=== PATIENT | male | born 1985 | race Caucasian/White ===

== ENCOUNTER 2019-03-26 20:40 | Emergency (ER) | payer BC ==
[2019-03-26] MEDS: GI Cocktail Oral Solution 30 ML PO ONE (21:28)
--- NOTE | 2019-03-27 00:35 | ER ---
REASON FOR EMERGENCY ROOM VISIT: Chest pain. HISTORY: This 33-year-old man [place] the [place]. He states that [place], about 2 hours prior to his coming to the emergency room, he developed a heaviness across his lower chest area and felt flushed. He also has had some left shoulder stiffness, but thinks that is more related to muscle strain. He states he has had couple of episodes like this before for which he was seen by a chiropractor who told him his ribs were out of line. He had an adjustment and that resolved his symptoms. He did not have any diaphoresis or nausea. He denied any radiation down his arm or into his neck. By the time he arrived in the emergency department, his pain was almost completely resolved, and throughout his emergency room stay, he remained pain free. He does not give a history of exertional chest pain. He is a smoker, but he has no history of diabetes or hypertension. PAST MEDICAL HISTORY: He had procedure done for hemorrhoids in the past. He has also had an upper GI endoscopy, although I am not certain what that was done for. MEDICATIONS: None. ALLERGIES: NONE. FAMILY HISTORY: His father has diabetes. His mother is alive and well. He has 4 siblings who are alive and well and 2 children who are alive and well. 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 He is . He does admit to drinking alcohol occasionally and smokes cigarettes. He denies any illicit drug use. REVIEW OF SYSTEMS: Pertinent positives and negatives as listed in the HPI. PHYSICAL EXAMINATION: GENERAL: Reveals a pleasant, alert young man, in no acute distress. VITAL SIGNS: He is afebrile. Heart rate 77, blood pressure is 124/75, respiratory rate 18, O2 sats 99% on room air. HEENT: Head is normocephalic. Oropharynx is normal. NECK: Supple. No JVD is noted. No adenopathy. CHEST: Clear to auscultation with good air exchange bilaterally and no wheezes, rhonchi, or rales. CARDIAC: Regular rate without murmur or rub. ABDOMEN: Soft, nontender. No masses. No hepatosplenomegaly is noted. EXTREMITIES: Normal pulses. No edema. NEUROLOGIC: He moves all 4 extremities. Sensation is intact to crude touch. LABORATORY DATA: His CBC shows a white count of 11.5. His hemoglobin is 14.7. His chest x- ray shows no active pulmonary disease. His EKG does not show any acute changes, and he has normal sinus rhythm. BMP is within normal limits with normal renal function and electrolytes. His troponin 1 is normal at less than 0.017. FURTHER EMERGENCY ROOM COURSE: He was given a GI cocktail, although he remains asymptomatic throughout his emergency room stay. IMPRESSION: Chest pain, uncertain etiology. I doubt cardiac in origin, resolved. PLAN: Given his age and presentation and the EKG findings and the normal troponin, I felt comfortable sending him home. He understands that should he have recurrent episodes of pain, he should definitely need to have this checked out. I urged him to follow up with his provider when he gets back home again. He lives in the [facility], and he does have a provider. I also advised him about smoking cessation. All questions were answered. He understands and agrees to this plan. JONATHON /[id number]
--- NOTE | 2019-03-27 08:46 | CR ---
DATE OF SERVICE: 03/26/19 CLINICAL DATA: chest heaviness AP CHEST: No priors. The heart size is normal. The lungs are clear. No pneumothorax. No pleural effusions. No evidence of acute intrathoracic disease. [id number] [facility]
== END 2019-03-26 21:58 | disposition home or self-care (01) ==
LOC: LB.ED 20:40
DX: R07.9 Chest pain, unspecified (principal); F17.210 Nicotine dependence, cigarettes, uncomplicated
CPT/HCPCS: 36415; 71045; 80048; 84484; 85027; 93005; 99285-25; A9270-GY